=== PATIENT | male | born 2000 | race American Indian/Alaskan Native ===

== ENCOUNTER 2023-10-13 23:48 | Emergency (ER) | payer MEDICAID ==
[~2023-10-13] VITALS: Ht 188 cm; Wt 86.2 kg
[2023-10-14 00:02] VITALS: BP_SYST 116; PULSE 60; RESP 16; TEMP 98; O2SAT 98
== END 2023-10-14 00:27 | disposition left against medical advice (07) ==
LOC: SED 23:48
DX: M25.561 Pain in right knee (principal); Z53.21 Procedure and treatment not carried out due to patient leaving prior to being seen by health care provider